=== PATIENT | male | born 1950 | race Caucasian/White ===

== ENCOUNTER 2018-07-04 08:37 | Emergency (ER) | payer MEDICARE ==
[~2018-07-04] VITALS: Ht 167.6 cm; Wt 84.3 kg
[2018-07-04] MEDS ORDERED: SODIUM CHLORIDE FLUSH 10ML SYR IVF ONE (09:30)
[2018-07-04] MEDS ORDERED: ASPIRIN 81 MG TABLET CHEW PO ONE (09:30)
[2018-07-04] MEDS ORDERED: NITROGLYCERIN SINGLE TAB 0.4 MG SL PRN (09:30)
[2018-07-04 09:33] LABS: BASOPHILS # (AUTO) 0.02 x10^3/uL (0-0.1); BASOPHILS % (AUTO) 0 % (0-1); EOSINOPHILS # (AUTO) 0.17 x10^3/uL (0-0.4); EOSINOPHILS % (AUTO) 1 % (1-7); LYMPHOCYTES # (AUTO) 2.44 x10^3/uL (1-3.4); LYMPHOCYTES % (AUTO) 19 % (22-44); MD NO; MEAN CORPUSCULAR HEMOGLOBIN 29.8 pg (27.5-34.5); MEAN CORPUSCULAR HGB CONC 33.9 g/dL (33.2-36.2); MEAN CORPUSCULAR VOLUME 87.9 fL (81-97); MEAN PLATELET VOLUME 7.1 fL (7.4-10.4); MONOCYTES % (AUTO) 6 % (2-9); NEUTROPHILS # (AUTO) 9.35 x10^3/uL (1.8-6.8); NEUTROPHILS % (AUTO) 73 % (42-75); PLATELET COUNT 432 x10^3/uL (130-400); RED BLOOD COUNT 5.39 x10^6/uL (4.38-5.82); RED CELL DISTRIBUTION WIDTH 12.1 % (9.4-14.8)
[2018-07-04] MEDS ORDERED: ASPIRIN 81 MG TABLET CHEW ONE (09:41)
[2018-07-04] MEDS ORDERED: NITROGLYCERIN SINGLE TAB 0.4 MG SL ONE (09:41)
[2018-07-04 09:44] LABS: ALANINE AMINOTRANSFERASE 22 U/L (12-78); ALBUMIN 3.3 g/dL (3.4-5.0); ANION GAP 6 mmol/L (5-15); CALCIUM 8.9 mg/dL (8.5-10.1); CHLORIDE 102 mmol/L (98-107); CREATININE 0.73 mg/dL (0.7-1.3)
[2018-07-04 09:49] LABS: ALKALINE PHOSPHATASE 145 U/L (45-117); BILIRUBIN,TOTAL 0.5 mg/dL (0.2-1.0); TOTAL PROTEIN 7.5 g/dL (6.4-8.2); TROPONIN I < 0.015 ng/mL (0.000-0.045)
--- NOTE | 2018-07-04 09:53 | NUR ---
PT. IS A & O X 4 WITH C/O CHEST WALL PAIN AND FLU SYMPTOMS. IV ACCESS ESTABLISHED. PT. HAS THE CP MONITOR IN PLACE. PT. HAS INSPIRATORY WHEEZING NOTED UPON AUSCULATATION. PT.'S CAP REFILL IS BRISK, LESS THAN 3 SECONDS WITH PULSES +2 THROUGHOUT. PT.'S HOB IS ELEVATED GREATER THAN 30 DEGREES. PT. HAS BLANKETS FOR WARMTH. SIDERAILS REMAIN UP X 2 WITH THE CALL LIGHT IN PLACE. VSS.
--- NOTE | 2018-07-04 10:12 | NUR ---
REPORT RECEIVED FROM IMANI ANDERSON. ASSUMED CARE OF PT. PT CURRENTLY RESTING ON GURNEY. NAD NOTED. PT AO X 4. SKIN PWD. RESP EVEN AND EQAUL. PT AWARE THAT WE ARE WAITING FOR LAB/IMAGING RESULTS. PT ON CONT BP, CARDIAC AND O2 MONITORS. CALL LIGHT WITHIN REACH. WILL CONT TO MONITOR PT.
--- NOTE | 2018-07-04 10:48 | NUR ---
PT CURRENTLY RESTING ON [employer]. NAD NOTED. SKIN PWD. RESP EVEN AND EQUAL. AO X 4. PT CURRENTLY DENIES PAIN/NEEDS. PT AWARE THAT WE ARE WAITING FOR RECORDS FROM [facility]. CALL LIGHT WITHIN REACH. WILL CONT TO MONITOR PT.
--- NOTE | 2018-07-04 11:58 | NUR ---
JOSE R CLAY AT BEDSIDE TO DISCUSSE POC WITH PT. PT AWARE THAT [facility] HAS NOT SENT US THE REQUESTED RECORDS AFTER MULTIPLE ATTEMPTS AND THIS IS THE DELAY IN CARE. PT AO X 4. SKIN PWD. RESP EVEN AND EQAUL. CALL LIGHT WITHIN REACH. WILL CONT TO MONITOR PT.
[2018-07-04 12:08] VITALS: BP 158/85
== END 2018-07-04 12:45 | disposition home or self-care (01) ==
LOC: ED 12:26
DX: R07.89 Other chest pain (principal); E11.9 Type 2 diabetes mellitus without complications
CPT/HCPCS: 36415; 71045; 80053; 84484; 85025; 93005; 99284

== ENCOUNTER 2019-01-06 07:59 | Observation (INO) | payer MEDICARE ==
[~2019-01-06] VITALS: Ht 168.9 cm; Wt 82.8 kg
[2019-01-06] MEDS ORDERED: ASPIRIN 81 MG TABLET CHEW PO ONE (08:30)
[2019-01-06] MEDS ORDERED: SODIUM CHLORIDE FLUSH 10ML SYR IVF ONE (08:30)
[2019-01-06] MEDS ORDERED: ONDANSETRON 2MG/ML, 2ML IVPush ONE (08:30)
[2019-01-06] MEDS ORDERED: MORPHINE SULFATE 4 MG/ML, 1ML IVPush PRN (08:30)
[2019-01-06] MEDS ORDERED: MORPHINE SULFATE 4 MG/ML, 1ML ONE (08:37)
[2019-01-06] MEDS ORDERED: ONDANSETRON 2MG/ML, 2ML ONE (08:37)
[2019-01-06] MEDS ORDERED: ASPIRIN 81 MG TABLET CHEW ONE (08:37)
[2019-01-06 08:57] LABS: BASOPHILS # (AUTO) 0.03 x10^3/uL (0-0.1); BASOPHILS % (AUTO) 0 % (0-1); EOSINOPHILS # (AUTO) 0.24 x10^3/uL (0-0.4); EOSINOPHILS % (AUTO) 3 % (1-7); LYMPHOCYTES # (AUTO) 2.15 x10^3/uL (1-3.4); LYMPHOCYTES % (AUTO) 29 % (22-44); MD NO; MEAN CORPUSCULAR HEMOGLOBIN 30.2 pg (27.5-34.5); MEAN CORPUSCULAR HGB CONC 33.5 g/dL (33.2-36.2); MEAN CORPUSCULAR VOLUME 90.1 fL (81-97); MEAN PLATELET VOLUME 7.5 fL (7.4-10.4); MONOCYTES # (AUTO) 0.51 x10^3/uL (0.2-0.8); MONOCYTES % (AUTO) 7 % (2-9); NEUTROPHILS # (AUTO) 4.49 x10^3/uL (1.8-6.8); NEUTROPHILS % (AUTO) 61 % (42-75); PLATELET COUNT 233 x10^3/uL (130-400); RED BLOOD COUNT 5.12 x10^6/uL (4.38-5.82); RED CELL DISTRIBUTION WIDTH 12.5 % (9.4-14.8)
--- NOTE | 2019-01-06 09:04 | NUR ---
LABS AND RAD PENDING, PT RESTING IN [facility] ON MONITOR, NO C/O CP AT THIS TIME. CALL LIGHT WITHIN REACH
[2019-01-06 09:06] LABS: ALBUMIN 3.4 g/dL (3.4-5.0); ANION GAP 9 mmol/L (5-15); CALCIUM 8.6 mg/dL (8.5-10.1); CHLORIDE 102 mmol/L (98-107)
[2019-01-06 09:10] LABS: TROPONIN I < 0.015 ng/mL (0.000-0.045)
[2019-01-06] MEDS ORDERED: SODIUM CHLORIDE FLUSH 10ML SYR IVF PRN (09:30)
[2019-01-06 09:49] LABS: ACETONE, SERUM Negative (Negative)
[2019-01-06] MEDS ORDERED: UNKNOWN PSYCH MED (10:04)
--- NOTE | 2019-01-06 10:04 | NUR ---
ATTEMPTED TO CALL REPORT X1, NO ANSWER FROM RN
[2019-01-06 10:09] LABS: HEMOGLOBIN A1C 10.9 % (4.2-6.3)
--- NOTE | 2019-01-06 10:20 | NUR ---
REPORT TO CORWIN DIALLO
[2019-01-06 10:45] VITALS: BP 164/87
[2019-01-06] MEDS ORDERED: morphine SULFATE 10 MG/ML, 1ML IVPush PRN (11:30)
[2019-01-06] MEDS ORDERED: DEXTROSE 4 GM TAB.CHEW PO PRN (11:30)
[2019-01-06] MEDS ORDERED: DEXTROSE 50%, 50ML SYRINGE IVPush PRN (11:30)
[2019-01-06] MEDS ORDERED: GABAPENTIN 300 MG CAPSULE PO PRN (11:30)
[2019-01-06] MEDS ORDERED: ACETAMINOPHEN 325 MG TABLET PO PRN (11:30)
[2019-01-06] MEDS ORDERED: LORazepam 1MG TABLET PO PRN (11:30)
[2019-01-06] MEDS ORDERED: NITROGLYCERIN 0.4 MG BOTTLE (25 TABS) SL PRN (11:30)
[2019-01-06] MEDS ORDERED: GLUCAGON 1 MG IM PRN (11:30)
[2019-01-06] MEDS ORDERED: ENALAPRILAT 1.25 MG/ML, 2ML IVPush PRN (11:30)
[2019-01-06] MEDS ORDERED: ONDANSETRON ODT 4 MG PO PRN (11:30)
[2019-01-06] MEDS ORDERED: ONDANSETRON 2MG/ML, 2ML IVPush PRN (11:30)
[2019-01-06] MEDS ORDERED: SERT100T32 PO (11:59)
[2019-01-06 12:09] VITALS: BP 164/90
[2019-01-06] MEDS: ENOXAPARIN 40 MG/0.4 ML SQ SCH (12:34)
[2019-01-06] MEDS: INSULIN LISPRO 100 UNITS/ML, PEN SQ-INSULIN SCH ×3 (12:35→21:06)
[2019-01-06 15:20] LABS: TROPONIN I < 0.015 ng/mL (0.000-0.045)
[2019-01-06] MEDS: metFORMIN 500 MG TABLET PO SCH (17:47)
[2019-01-06 20:39] VITALS: BP 151/90
[2019-01-06] MEDS: FAMOTIDINE 20 MG TABLET PO SCH (20:49)
[2019-01-06] MEDS ORDERED: MELATONIN 5 MG TABLET PO PRN (21:00)
[2019-01-06] MEDS ORDERED: SODIUM CHLORIDE FLUSH 10ML SYR IVF SCH (21:00)
[2019-01-06 22:16] LABS: TROPONIN I < 0.015 ng/mL (0.000-0.045)
[2019-01-07 04:50] VITALS: BP 122/81
[2019-01-07 05:50] LABS: BASOPHILS # (AUTO) 0.02 x10^3/uL (0-0.1); BASOPHILS % (AUTO) 0 % (0-1); EOSINOPHILS # (AUTO) 0.24 x10^3/uL (0-0.4); EOSINOPHILS % (AUTO) 3 % (1-7); LYMPHOCYTES # (AUTO) 2.46 x10^3/uL (1-3.4); LYMPHOCYTES % (AUTO) 34 % (22-44); MD NO; MEAN CORPUSCULAR HEMOGLOBIN 30.6 pg (27.5-34.5); MEAN CORPUSCULAR HGB CONC 33.1 g/dL (33.2-36.2); MEAN CORPUSCULAR VOLUME 92.3 fL (81-97); MEAN PLATELET VOLUME 7.9 fL (7.4-10.4); MONOCYTES # (AUTO) 0.55 x10^3/uL (0.2-0.8); MONOCYTES % (AUTO) 8 % (2-9); NEUTROPHILS # (AUTO) 4.03 x10^3/uL (1.8-6.8); NEUTROPHILS % (AUTO) 55 % (42-75); PLATELET COUNT 219 x10^3/uL (130-400); RED BLOOD COUNT 5.08 x10^6/uL (4.38-5.82); RED CELL DISTRIBUTION WIDTH 12.8 % (9.4-14.8)
[2019-01-07] MEDS ORDERED: ASPIRIN 325 MG TABLET EC PO SCH (06:00)
[2019-01-07 06:10] LABS: CHLORIDE 106 mmol/L (98-107)
[2019-01-07 06:20] LABS: ALANINE AMINOTRANSFERASE 23 U/L (12-78); ALBUMIN 3.1 g/dL (3.4-5.0); ALKALINE PHOSPHATASE 108 U/L (45-117); ANION GAP 6 mmol/L (5-15); BILIRUBIN,TOTAL 0.7 mg/dL (0.2-1.0); CALCIUM 8.2 mg/dL (8.5-10.1); CHOL/HDL RATIO 2.9; CHOLESTEROL, TOTAL 161 mg/dL (140-239); CREATININE 0.81 mg/dL (0.7-1.3); HDL CHOL % 35 % (26-37); HDL CHOLESTEROL (DIRECT) 56 mg/dL (40-60); LDL CHOLESTEROL,CALCULATED 67 mg/dL (54-169); LDL/HDL RATIO 1.2 (0.5-3.0); THYROID STIMULATING HORMONE 0.536 mIU/L (0.358-3.740); TOTAL PROTEIN 6.2 g/dL (6.4-8.2); TRIGLYCERIDES 191 mg/dL (50-200); VLDL CHOLESTEROL 38 mg/dL (0-25)
[2019-01-07] MEDS ORDERED: SERTRALINE 100MG TABLET PO SCH (09:00)
[2019-01-07] MEDS: metFORMIN 500 MG TABLET PO SCH (09:18)
[2019-01-07] MEDS: FAMOTIDINE 20 MG TABLET PO SCH (09:18)
[2019-01-07 09:20] VITALS: BP 138/96
[2019-01-07] MEDS: INSULIN LISPRO 100 UNITS/ML, PEN SQ-INSULIN SCH ×2 (09:23→12:10)
[2019-01-07] MEDS: ENOXAPARIN 40 MG/0.4 ML SQ SCH (12:08)
[2019-01-07 12:38] VITALS: BP 132/83
[2019-01-07] MEDS ORDERED: NITR0.4T28 SL (13:19)
[2019-01-07] MEDS ORDERED: METF500T17 PO (13:19)
[2019-01-07] MEDS ORDERED: ASPI-650 PO (13:19)
== END 2019-01-07 14:00 | disposition home or self-care (01) ==
LOC: ED 09:19 → EDIP 09:40 → INTOOBSV 09:40 → 5SO 10:42 → DCLOUNGE 01-07 13:58
PROVIDERS: ADMIT Emergency Medicine; ATTEND Internal Medicine
DX: I20.0 Unstable angina (principal); E11.65 Type 2 diabetes mellitus with hyperglycemia; E87.1 Hypo-osmolality and hyponatremia; F43.10 Post-traumatic stress disorder, unspecified; I10 Essential (primary) hypertension; Z91.19 Patient's noncompliance with other medical treatment and regimen
CPT/HCPCS: 36415; 71045; 80048; 80053; 80061; 82010; 82040; 82962; 83036; 83735; 84100; 84443; 84484; 85025; 93005; 93017; 93306; 96372; 96374; 99284; G0378; J1650; J1815; J2405

== ENCOUNTER → 2019-09-27 | Outpatient (CLI) | payer MEDICARE ==
[~2019-09-27] MED LIST: ASPI-650 PO; METF500T17 PO; NITR0.4T28 SL; SERT100T32 PO; UNKNOWN PSYCH MED
== END | disposition home or self-care (01) ==
LOC: RAD 08:22
PROVIDERS: ATTEND Internal Medicine
DX: M47.26 Other spondylosis with radiculopathy, lumbar region (principal); M25.78 Osteophyte, vertebrae; M43.8X6 Other specified deforming dorsopathies, lumbar region; M48.061 Spinal stenosis, lumbar region without neurogenic claudication
CPT/HCPCS: 72100

== ENCOUNTER → 2020-03-26 | Outpatient (CLI) | payer MEDICARE ==
[~2020-03-26] MED LIST changes: +ANTIDEPRESSANT PO; +GABA600T7 PO; +SITA50TA PO
[2020-03-26 11:01] LABS: BASOPHILS # (AUTO) 0.06 x10^3/uL (0-0.1); BASOPHILS % (AUTO) 1 % (0-1); EOSINOPHILS # (AUTO) 0.83 x10^3/uL (0-0.4); EOSINOPHILS % (AUTO) 10 % (1-7); LYMPHOCYTES # (AUTO) 2.21 x10^3/uL (1-3.4); LYMPHOCYTES % (AUTO) 28 % (22-44); MD NO; MEAN CORPUSCULAR HEMOGLOBIN 30.7 pg (27.5-34.5); MEAN CORPUSCULAR HGB CONC 32.6 g/dL (33.2-36.2); MEAN PLATELET VOLUME 7.7 fL (7.4-10.4); MONOCYTES # (AUTO) 0.63 x10^3/uL (0.2-0.8); MONOCYTES % (AUTO) 8 % (2-9); NEUTROPHILS # (AUTO) 4.28 x10^3/uL (1.8-6.8); NEUTROPHILS % (AUTO) 53 % (42-75); PLATELET COUNT 241 x10^3/uL (130-400); RED CELL DISTRIBUTION WIDTH 12.2 % (9.4-14.8)
[2020-03-26 11:04] LABS: PROTHROMBIN TIME 10.3 Seconds (9.6-11.5)
[2020-03-26 11:05] LABS: ALANINE AMINOTRANSFERASE 25 U/L (12-78); ALBUMIN 3.6 g/dL (3.4-5.0); ANION GAP 5 mmol/L (5-15); CALCIUM 8.8 mg/dL (8.5-10.1); CHLORIDE 109 mmol/L (98-107); CREATININE 1.05 mg/dL (0.7-1.3)
[2020-03-26 11:07] LABS: ALKALINE PHOSPHATASE 90 U/L (45-117); BILIRUBIN,TOTAL 0.3 mg/dL (0.2-1.0); TOTAL PROTEIN 7.1 g/dL (6.4-8.2)
== END | disposition home or self-care (01) ==
LOC: STAR 09:59
PROVIDERS: ATTEND Neurological Surgery
DX: Z01.818 Encounter for other preprocedural examination (principal); M48.062 Spinal stenosis, lumbar region with neurogenic claudication
CPT/HCPCS: 36415; 71046; 80053; 85025; 85610; 85730; 93005

== ENCOUNTER 2020-04-06 08:00 | Outpatient (CLI) | payer MEDICARE ==
[~2020-04-06] VITALS: Ht 170.2 cm; Wt 81.7 kg
== END 2020-04-06 23:59 | disposition home or self-care (01) ==
LOC: STAR 08:00 → EDSTATUS 04-09 07:30
PROVIDERS: ATTEND Neurological Surgery
DX: Z01.812 Encounter for preprocedural laboratory examination (principal); Z20.828 Contact with and (suspected) exposure to other viral communicable diseases; M48.061 Spinal stenosis, lumbar region without neurogenic claudication
CPT/HCPCS: 36415; 87635

== ENCOUNTER → 2020-05-25 | Outpatient (CLI) | payer MEDICARE, MEDICAID ==
[~2020-05-25] MED LIST changes: +GLIP5TAB10 PO; +SERT50TA28 PO
[2020-05-25 12:00] LABS: BASOPHILS % (AUTO) 0 % (0-1); EOSINOPHILS % (AUTO) 1 % (1-7); LYMPHOCYTES % (AUTO) 21 % (22-44); MEAN CORPUSCULAR HEMOGLOBIN 30.5 pg (27.5-34.5); MEAN CORPUSCULAR HGB CONC 34.2 g/dL (33.2-36.2); MEAN PLATELET VOLUME 8.1 fL (7.4-10.4); MONOCYTES % (AUTO) 5 % (2-9); NEUTROPHILS % (AUTO) 73 % (42-75); PLATELET COUNT 296 x10^3/uL (130-400); RED BLOOD COUNT 4.69 x10^6/uL (4.38-5.82)
[2020-05-25 12:06] LABS: INTERNATIONAL NORMALIZED RATIO 0.99 (0.93-1.1); PROTHROMBIN TIME 10.5 Seconds (9.6-11.5)
[2020-05-25 12:07] LABS: CHLORIDE 105 mmol/L (98-107); MD NO
[2020-05-25 12:14] LABS: ALANINE AMINOTRANSFERASE 25 U/L (12-78); ALKALINE PHOSPHATASE 83 U/L (45-117); ANION GAP 8 mmol/L (5-15); BILIRUBIN,TOTAL 0.5 mg/dL (0.2-1.0); CALCIUM 9.4 mg/dL (8.5-10.1); CREATININE 0.83 mg/dL (0.7-1.3); TOTAL PROTEIN 7.6 g/dL (6.4-8.2)
== END | disposition home or self-care (01) ==
LOC: STAR 10:25
PROVIDERS: ATTEND Neurological Surgery
DX: Z01.818 Encounter for other preprocedural examination (principal); M48.062 Spinal stenosis, lumbar region with neurogenic claudication
CPT/HCPCS: 36415; 71046; 80053; 83036; 85025; 85610; 85730; 93005

== ENCOUNTER → 2020-05-29 | Outpatient (CLI) | payer MEDICARE, MEDICAID | END | disposition home or self-care (01) | LOC: STAR 11:54 | PROVIDERS: ATTEND Anesthesiology | DX: Z20.828 Contact with and (suspected) exposure to other viral communicable diseases (principal) | CPT/HCPCS: 87635 ==

== ENCOUNTER 2020-06-04 05:30 | Day surgery (SDC) | payer MEDICARE, MEDICAID ==
[~2020-06-04] VITALS: Ht 167.6 cm; Wt 84.0 kg
[2020-06-04] MEDS ORDERED: CHLORHEXIDINE 15 ML UDC MM STA (06:03)
[2020-06-04 06:05] VITALS: BP 134/61
[2020-06-04] MEDS ORDERED: LACTATED RINGERS 1,000 ML IV SCH (06:30)
[2020-06-04] MEDS ORDERED: EPINEPHRINE 1 MG/ML, 1ML ONE (06:47)
[2020-06-04] MEDS ORDERED: BUPIVACAINE/PF 0.5% ONE (06:47)
[2020-06-04] MEDS ORDERED: BACITRACIN 50,000 UNIT ONE (06:47)
[2020-06-04] MEDS ORDERED: MIDAZOLAM 1 MG/ML, 2ML ONE (07:25)
[2020-06-04] MEDS ORDERED: FENTANYL PF 250 MCG/5ML ONE (07:29)
[2020-06-04] MEDS ORDERED: MEPERIDINE/PF 25MG/0.5ML IVPush PRN (09:00)
[2020-06-04] MEDS ORDERED: KETOROLAC 30 MG/1 ML IV PRN (09:00)
[2020-06-04] MEDS ORDERED: HYDROmorphone 2 MG/ML, 1ML IVPush PRN (09:00)
[2020-06-04] MEDS ORDERED: OXYcodone 5 MG/5 ML ORAL.SOL UDC PO PRN (09:00)
[2020-06-04] MEDS ORDERED: hydrALAzine 20 MG/ML, 1ML IV PRN (09:00)
[2020-06-04] MEDS ORDERED: PROMETHAZINE 25 MG/ML, 1ML IV PRN (09:00)
[2020-06-04] MEDS ORDERED: ACETAMINOPHEN 325 MG TABLET PO PRN (09:00)
[2020-06-04] MEDS ORDERED: ALBUTEROL SULFATE 2.5 MG/3 ML NPPB PRN (09:00)
[2020-06-04] MEDS ORDERED: LABETALOL 5MG/ML, 20ML IV PRN (09:00)
[2020-06-04] MEDS ORDERED: DIAZEPAM 5 MG/ML, 2ML IVPush PRN (09:00)
[2020-06-04] MEDS ORDERED: KETOROLAC 30 MG/1 ML ONE (09:42)
[2020-06-04] MEDS ORDERED: OXYcodone 5 MG/5 ML ORAL.SOL UDC ONE (09:42)
[2020-06-04] MEDS ORDERED: SUCCINYLCHOLINE 20 MG/ML, 10ML ONE (09:53)
[2020-06-04] MEDS ORDERED: PROPOFOL 10 MG/ML, 20ML ONE (09:53)
[2020-06-04] MEDS ORDERED: NEOSTIGMINE 1 MG/ML, 10ML ONE (09:53)
[2020-06-04] MEDS ORDERED: GLYCOPYRROLATE 0.2MG/1ML, 5ML ONE (09:53)
[2020-06-04] MEDS ORDERED: ROCURONIUM 10MG/ML,5ML ONE (09:53)
[2020-06-04] MEDS ORDERED: CEFAZOLIN 1,000 MG ONE (09:53)
[2020-06-04] MEDS ORDERED: ONDANSETRON 2MG/ML, 2ML ONE (09:53)
[2020-06-04] MEDS ORDERED: METHOCARBAMOL 750 MG TABLET ONE (09:58)
[2020-06-04] MEDS ORDERED: METHOCARBAMOL 750 MG TABLET PO PRN (10:00)
[2020-06-04] MEDS: FENTANYL PF 100 MCG/2ML IV PRN ×2 (10:02→10:07)
[2020-06-04] MEDS ORDERED: FENTANYL PF 100 MCG/2ML ONE (10:02)
== END 2020-06-04 13:30 | disposition home or self-care (01) ==
LOC: OUT 05:30
PROVIDERS: ATTEND Neurological Surgery
DX: M48.062 Spinal stenosis, lumbar region with neurogenic claudication (principal); M54.16 Radiculopathy, lumbar region; E11.65 Type 2 diabetes mellitus with hyperglycemia; F41.8 Other specified anxiety disorders; Z79.84 Long term (current) use of oral hypoglycemic drugs; Z79.899 Other long term (current) drug therapy; Z87.891 Personal history of nicotine dependence
CPT/HCPCS: 63047; 72100; 82962; J0171; J0330; J0690; J1885; J2250; J2405; J2704; J2710; J3010; J7120

== ENCOUNTER → 2020-11-25 | Outpatient (CLI) | payer MEDICARE, MEDICAID ==
[~2020-11-25] MED LIST changes: -ASPI-650 PO; +ASPI325T20 PO; +ATOR40TA78 PO; +CHOL10003 PO; +HYDR50TA99 PO; +PRAZ1CAP2 PO
[2020-11-25 09:46] LABS: MICROSCOPIC NOT IND
[2020-11-25 09:48] LABS: BASOPHILS % (AUTO) 1 % (0-1); EOSINOPHILS % (AUTO) 5 % (1-7); LYMPHOCYTES % (AUTO) 28 % (22-44); MEAN CORPUSCULAR HEMOGLOBIN 28.9 pg (27.5-34.5); MEAN CORPUSCULAR HGB CONC 32.9 g/dL (33.2-36.2); MEAN PLATELET VOLUME 7.9 fL (7.4-10.4); MONOCYTES % (AUTO) 9 % (2-9); NEUTROPHILS % (AUTO) 58 % (42-75); PLATELET COUNT 206 x10^3/uL (130-400); RED BLOOD COUNT 4.34 x10^6/uL (4.38-5.82); RED CELL DISTRIBUTION WIDTH 12.7 % (9.4-14.8)
[2020-11-25 09:55] LABS: ALBUMIN 3.8 g/dL (3.4-5.0); ANION GAP 3 mmol/L (5-15); CALCIUM 8.8 mg/dL (8.5-10.1); CHLORIDE 110 mmol/L (98-107); INTERNATIONAL NORMALIZED RATIO 0.99 (0.93-1.1); PROTHROMBIN TIME 10.6 Seconds (9.6-11.5)
[2020-11-25 09:57] LABS: MD NO
[2020-11-25 09:58] LABS: ALANINE AMINOTRANSFERASE 18 U/L (12-78); ALKALINE PHOSPHATASE 79 U/L (45-117); BILIRUBIN,TOTAL 0.4 mg/dL (0.2-1.0); CREATININE 0.88 mg/dL (0.7-1.3)
== END | disposition home or self-care (01) ==
LOC: STAR 08:36
PROVIDERS: ATTEND Neurological Surgery
DX: Z01.810 Encounter for preprocedural cardiovascular examination (principal); Z01.811 Encounter for preprocedural respiratory examination; Z01.812 Encounter for preprocedural laboratory examination; M54.16 Radiculopathy, lumbar region; M54.5 Low back pain; R82.90 Unspecified abnormal findings in urine; R79.1 Abnormal coagulation profile; R94.31 Abnormal electrocardiogram [ECG] [EKG]; R00.1 Bradycardia, unspecified; Z20.822 Contact with and (suspected) exposure to COVID-19
CPT/HCPCS: 36415; 71046; 80053; 81003; 85025; 85610; 85730; 93005; U0003; U0005

== ENCOUNTER 2020-12-02 07:23 | Observation (INO) | payer MEDICARE, MEDICAID ==
[~2020-12-02] VITALS: Ht 167.6 cm; Wt 92.9 kg
[~2020-12-02 07:23] MED LIST changes: +BACITRACIN 50,000 UNIT ONE; +BUPIVACAINE/PF 0.5% ONE; +EPINEPHRINE 1 MG/ML, 1ML ONE; +VANCOMYCIN 1,000 MG ONE
[2020-12-02] MEDS ORDERED: CHLORHEXIDINE 15 ML UDC PO ONE (08:00)
[2020-12-02] MEDS ORDERED: FENTANYL PF 250 MCG/5ML ONE (08:00)
[2020-12-02] MEDS ORDERED: LACTATED RINGERS 1,000 ML IV SCH (08:00)
[2020-12-02 08:01] VITALS: BP 146/91
[2020-12-02] MEDS ORDERED: CHLORHEXIDINE 15 ML UDC ONE (08:09)
[2020-12-02] MEDS ORDERED: HYDROmorphone 1 MG/ML, 1ML INJ IVPush PRN ×2 (09:00→11:00)
[2020-12-02] MEDS ORDERED: METHOCARBAMOL 1,000 MG in DEXTROSE 5% 100 ML IV PRN (09:00)
[2020-12-02] MEDS ORDERED: PROMETHAZINE 25 MG/ML, 1ML IVPush PRN (09:00)
[2020-12-02] MEDS ORDERED: LABETALOL 5MG/ML, 20ML IV PRN (09:00)
[2020-12-02] MEDS ORDERED: ACETAMINOPHEN 325 MG TABLET PO PRN ×2 (09:00→11:00)
[2020-12-02] MEDS ORDERED: MIDAZOLAM 1 MG/ML, 2ML IV PRN (09:00)
[2020-12-02] MEDS ORDERED: MEPERIDINE/PF 25MG/0.5ML IVPush PRN (09:00)
[2020-12-02] MEDS ORDERED: OXYcodone 5 MG/5 ML ORAL.SOL UDC PO PRN (09:00)
[2020-12-02] MEDS ORDERED: LIDOCAINE-MPF 2% ,5ML ONE (09:28)
[2020-12-02] MEDS ORDERED: CEFAZOLIN 1,000 MG ONE (09:29)
[2020-12-02] MEDS ORDERED: PROPOFOL 10 MG/ML, 20ML ONE (09:29)
[2020-12-02] MEDS ORDERED: NEOSTIGMINE 1 MG/ML, 10ML ONE (09:29)
[2020-12-02] MEDS ORDERED: ONDANSETRON 2MG/ML, 2ML ONE (09:29)
[2020-12-02] MEDS ORDERED: DEXAMETHASONE 4 MG/ML, 1ML ONE (09:29)
[2020-12-02] MEDS ORDERED: ROCURONIUM 10MG/ML,5ML ONE (09:29)
[2020-12-02] MEDS ORDERED: GLYCOPYRROLATE 0.2MG/1ML, 5ML ONE (09:29)
[2020-12-02] MEDS ORDERED: FENTANYL PF 100 MCG/2ML ONE ×2 (10:40→11:11)
[2020-12-02] MEDS: FENTANYL PF 100 MCG/2ML IV PRN ×5 (10:42→11:20)
[2020-12-02] MEDS ORDERED: KETOROLAC 30 MG/1 ML ONE (10:58)
[2020-12-02] MEDS ORDERED: PHARMACY MAY ADJ FOR RENAL FX MC PRN (11:00)
[2020-12-02] MEDS ORDERED: DIPHENHYDRAMINE 50 MG/ML, 1ML IM PRN (11:00)
[2020-12-02] MEDS ORDERED: KETOROLAC 30 MG/1 ML IVPush ONE (11:00)
[2020-12-02] MEDS ORDERED: ONDANSETRON 2MG/ML, 2ML IVPush PRN (11:00)
[2020-12-02] MEDS ORDERED: INSULIN REGULAR 100 UNITS/ML, 3ML VIAL SQ-INSULIN PRN (11:00)
[2020-12-02] MEDS ORDERED: LABETALOL 5MG/ML, 20ML IVPush PRN (11:00)
[2020-12-02] MEDS ORDERED: DIPHENHYDRAMINE 50 MG CAPSULE PO PRN (11:00)
[2020-12-02] MEDS ORDERED: DIPHENHYDRAMINE 50 MG/ML, 1ML IVPush PRN (11:00)
[2020-12-02] MEDS ORDERED: MAGNESIUM HYDROXIDE 8%, 30ML UDC PO PRN (11:00)
[2020-12-02] MEDS ORDERED: METHOCARBAMOL 1,000 MG in DEXTROSE 5% 100 ML IV ONE (11:00)
[2020-12-02] MEDS ORDERED: SENNA/DOCUSATE TABLET PO PRN (11:00)
[2020-12-02] MEDS ORDERED: BISACODYL 10 MG SUPP PR PRN (11:00)
[2020-12-02] MEDS ORDERED: PROMETHAZINE 25 MG/ML, 1ML IM PRN (11:00)
[2020-12-02] MEDS ORDERED: ACETAMINOPHEN 650 MG/20.3 ML UDC ONE (11:02)
[2020-12-02] MEDS ORDERED: OXYcodone 5 MG/5 ML ORAL.SOL UDC ONE (11:02)
[2020-12-02] MEDS: LABETALOL 5MG/ML 40ML VIAL IVPush SCH ×2 (13:00→20:50)
[2020-12-02] MEDS: LINAGLIPTIN 5 MG TAB PO SCH (13:30)
[2020-12-02] MEDS: NS + 20MEQ KCL 1,000 ML IV SCH (13:30)
[2020-12-02 14:10] VITALS: BP 160/88
[2020-12-02 16:08] VITALS: BP 172/93
[2020-12-02] MEDS: GABAPENTIN 400 MG CAPSULE PO SCH ×2 (16:14→20:56)
[2020-12-02] MEDS: CEFAZOLIN PMX 1GM/50ML 50 ML IVPB SCH (17:33)
[2020-12-02 18:29] VITALS: BP 139/71
[2020-12-02] MEDS: metFORMIN 500 MG TABLET PO SCH (20:56)
[2020-12-02] MEDS: SERTRALINE 100MG TABLET PO SCH (20:56)
[2020-12-02] MEDS ORDERED: PRAZOSIN 1 MG CAPSULE PO SCH (21:00)
[2020-12-02] MEDS ORDERED: ATORVASTATIN 40 MG TABLET PO SCH (21:00)
[2020-12-03 00:15] VITALS: BP 140/83
[2020-12-03] MEDS: CEFAZOLIN PMX 1GM/50ML 50 ML IVPB SCH (01:29)
[2020-12-03] MEDS: NS + 20MEQ KCL 1,000 ML IV SCH (03:19)
[2020-12-03] MEDS: LABETALOL 5MG/ML 40ML VIAL IVPush SCH (03:25)
[2020-12-03 04:26] VITALS: BP 108/6
[2020-12-03] MEDS ORDERED: ENOXAPARIN 40 MG/0.4 ML SQ SCH (06:00)
[2020-12-03] MEDS ORDERED: HYDR-2214 PO (07:56)
[2020-12-03] MEDS ORDERED: METH-640 PO (07:56)
[2020-12-03] MEDS ORDERED: HYDROcodone/APAP 5/325 TABLET PO PRN (08:00)
[2020-12-03 08:31] VITALS: BP 110/67
[2020-12-03] MEDS ORDERED: hydrOXyzine 50MG TABLET PO SCH (09:00)
[2020-12-03] MEDS: GABAPENTIN 400 MG CAPSULE PO SCH (09:30)
[2020-12-03] MEDS: metFORMIN 500 MG TABLET PO SCH (09:30)
[2020-12-03] MEDS: SERTRALINE 100MG TABLET PO SCH (09:30)
[2020-12-03] MEDS: LINAGLIPTIN 5 MG TAB PO SCH (09:30)
[2020-12-04] MEDS ORDERED: METHOCARBAMOL 750 MG TABLET PO SCH (19:00)
== END 2020-12-03 12:30 | disposition home or self-care (01) ==
LOC: INTOOBSV 07:23 → ORIP 07:23 → EDSTATUS 11:00 → 4NE 12:05 → DCLOUNGE 12-03 12:17
PROVIDERS: ADMIT Neurological Surgery; ATTEND Neurological Surgery
DX: M51.16 Intervertebral disc disorders with radiculopathy, lumbar region (principal); M48.062 Spinal stenosis, lumbar region with neurogenic claudication; M53.86 Other specified dorsopathies, lumbar region; M71.30 Other bursal cyst, unspecified site; I10 Essential (primary) hypertension; E11.9 Type 2 diabetes mellitus without complications; N40.0 Benign prostatic hyperplasia without lower urinary tract symptoms; E78.5 Hyperlipidemia, unspecified; F41.8 Other specified anxiety disorders; F43.10 Post-traumatic stress disorder, unspecified; Z87.891 Personal history of nicotine dependence; Z79.899 Other long term (current) drug therapy
CPT/HCPCS: 63056; 72100; 82962; 96361; 96365; 96366; 96372; 97161; 97165; G0378; J0171; J0690; J1100; J1650; J1885; J2405; J2704; J2710; J2800; J3010; J3370; J3480; J3490; J7120; S0020